=== PATIENT | female | born 1945 | race Hispanic/Latino ===

== ENCOUNTER 2018-06-18 07:12 | Emergency (ER) | payer OTHER ==
[2018-06-18 07:48] LABS: APPEARANCE,URINE CLEAR (CLEAR); BILIRUBIN,URINE SMALL (NEGATIVE); COLOR,URINE YELLOW (YELLOW); GLUCOSE, URINE (UA) NEGATIVE (NEGATIVE); KETONES,URINE NEGATIVE (NEGATIVE); LEUKOCYTE ESTERASE ,URINE NEGATIVE (NEGATIVE); NITRATE,URINE NEGATIVE (NEGATIVE); OCCULT BLOOD,URINE NEGATIVE (NEGATIVE); PROTEIN,URINE TRACE (NEGATIVE); UROBILINOGEN,URINE 0.2 mg/dL (0.2-1.0)
[2018-06-18] MEDS ORDERED: ONDANSETRON HCL 4 MG/2 ML VIAL ONE (08:00)
[2018-06-18] MEDS ORDERED: SODIUM CHLORIDE 0.9% 1000ML 1,000 ML IV ONE (08:00)
[2018-06-18] MEDS ORDERED: MORPHINE SULFATE 4 MG/1ML SYG ONE (08:01)
[2018-06-18 08:11] LABS: RBC,URINE None Seen /HPF (0-1); WBC,URINE None Seen /HPF (0-1)
[2018-06-18 08:13] LABS: BACTERIA,URINE Rare /HPF (None Seen); MUCUS,URINE Moderate LPF (None Seen)
[2018-06-18 08:23] LABS: BASOPHILS % (AUTO) 0.9 % (0.0-5.0); EOSINOPHILS % (AUTO) 1.8 % (0.0-8.0); HEMATOCRIT 43.3 % (36-48); LYMPHOCYTES % (AUTO) 22.1 % (21.0-51.0); MEAN CORPUSCULAR HEMOGLOBIN 28.2 pg (27.0-33.0); MEAN CORPUSCULAR HGB CONC 32.9 g/dL (32.0-36.0); MEAN CORPUSCULAR VOLUME 85.7 fL (79-99); MONOCYTES % (AUTO) 6.5 % (3.0-13.0); NEUTROPHILS % (AUTO) 68.7 % (40.0-77.0); PLATELET COUNT (AUTO) 258 K/uL (130-400); RED BLOOD CELL COUNT(AUTO) 5.05 MIL/uL (4.00-5.50); RED CELL DISTRIBUTION WIDTH 14.5 % (11.0-15.5); WHITE BLOOD COUNT (AUTO) 8.9 K/uL (4.8-10.8)
[2018-06-18 08:27] LABS: CREATININE 0.6 mg/dL (0.5-1.5)
[2018-06-18 08:32] LABS: ALBUMIN 3.6 g/dL (3.5-5.0); BILIRUBIN,TOTAL 0.6 mg/dL (0.2-1.0); TOTAL PROTEIN, SERUM 7.7 g/dL (6.0-8.3)
[2018-06-18] MEDS ORDERED: DIPHENHYDRAMINE HCL 25 MG CAPSULE ONE (08:50)
== END 2018-06-18 09:57 | disposition home or self-care (01) ==
LOC: EDH 07:12
DX: K52.9 Noninfective gastroenteritis and colitis, unspecified (principal); E07.9 Disorder of thyroid, unspecified
CPT/HCPCS: 36415; 74176; 80053; 81001; 83690; 85025; 93005; 96361; 96374; 96375; 99285; J2270; J2405; J7030; Q0163